=== PATIENT | male | born 1970 | race Caucasian/White ===

== ENCOUNTER 2020-08-04 09:36 | Outpatient (CLI) | payer MEDICAID, SELFPAY ==
--- NOTE | 2020-08-04 09:45 | XR_ITS ---
WS: [id number] Exam: XR KUB [id number] Date/Time of Exam: 08/04/2020 9:46 AM Reason For Exam: stones Comparison 07/28/2018. Multiple calcifications superimpose both kidneys and apparently represents the patient's known renal stones. No bowel obstruction or free air. Nonspecific bilateral pelvic calcifications. Visualized org an margins are intact. Degenerative changes of the hips and L-spine. Visualized organ margins are int act. XR/XR KUB [id number] IMPRESSION: 1. Multiple calcifications superimposing both kidneys apparently representing t he patient's known renal calculi.
== END 2020-08-04 09:37 | disposition home or self-care (01) ==
LOC: RAD 09:40
PROVIDERS: PCP Family Medicine; Visit Provider Urology
DX: N20.9 Urinary calculus, unspecified (principal)
CPT/HCPCS: 74018; 81003

== ENCOUNTER → 2022-09-30 10:02 | Outpatient (BNVA) | payer MEDICAID, SELFPAY | PROVIDERS: PCP Family Medicine; Visit Provider Otolaryngology | DX: J32.9 Chronic sinusitis, unspecified (principal); G47.33 Obstructive sleep apnea (adult) (pediatric); K14.8 Other diseases of tongue; E66.9 Obesity, unspecified; Z68.34 Body mass index [BMI] 34.0-34.9, adult | CPT/HCPCS: 99203 ==

== ENCOUNTER 2022-10-02 15:49 | Outpatient (CLI) | payer MEDICAID, SELFPAY ==
--- NOTE | 2022-10-02 16:00 | CT_ITS ---
WS: [id number] CT SINUSES TECHNIQUE: Noncontrast CT of the paranasal sinuses with coronal and sagittal reformatted images. CLINICAL INFORMATION: evaluate the sinuses. COMPARISON: None. DLP: 363.[address] scans at [facility] use at least one of these dose optimization techniques: automated e xposure control; mA and/or kV adjustment per patient size (includes targeted exams where dose is matc hed to clinical indication); or iterative reconstruction. FINDINGS: Mild LEFT to RIGHT nasal septal deviation measuring 6 mm. Bilateral erica bullosa. Narrowing of the ostiomeatal units bilaterally with mild mucosal thickening. Retention cyst LEFT maxillary sinus measu ring 1.8 cm. Frontal sinuses are well aerated. Frontal ethmoidal recesses are patent. Ethmoid air cells well aerated. Small amount of fluid in the R IGHT sphenoid sinus. Sphenoid sinus ostia are patent. Vascular calcification. Mastoid air cells are w ell aerated. Normal posterior nasopharynx. Chronic infarct in the RIGHT roberson radiata. CT/CT sinus wo con* [id number] IMPRESSION: 1. Mild LEFT to RIGHT nasal septal deviation measuring 6 mm. 2. Bilateral erica bullosa. Narrowing of the ostiomeatal units bilaterally. 3. Retention cyst LEFT maxillary sinus measuring 1.8 cm. 4. Small amount of fluid in the RIGHT sphenoid sinus. 5. Chronic lacunar infarct in the RIGHT roberson radiata.
== END 2022-10-02 15:50 | disposition home or self-care (01) ==
LOC: RAD 15:51
PROVIDERS: PCP Family Medicine; Visit Provider Otolaryngology
DX: J32.9 Chronic sinusitis, unspecified (principal); J34.2 Deviated nasal septum; N28.1 Cyst of kidney, acquired
CPT/HCPCS: 70486

== ENCOUNTER → 2022-10-15 15:08 | Outpatient (BNVA) | payer MEDICAID, SELFPAY | PROVIDERS: PCP Family Medicine; Visit Provider Otolaryngology | DX: J34.2 Deviated nasal septum (principal); J32.0 Chronic maxillary sinusitis; J32.3 Chronic sphenoidal sinusitis; J34.89 Other specified disorders of nose and nasal sinuses; G47.33 Obstructive sleep apnea (adult) (pediatric); K14.8 Other diseases of tongue; E66.9 Obesity, unspecified; Z68.34 Body mass index [BMI] 34.0-34.9, adult | CPT/HCPCS: 99214 ==